=== PATIENT | male | born 1975 ===

== ENCOUNTER 2020-08-20 09:30 | Outpatient (RCR) | payer OTHER, SELFPAY ==
--- NOTE | 2020-08-04 09:29 | PC.NURSE ---
Pt did not attend the community meeting. Called pt who reported he did not have any internet. Confirmed he would start PHP tomorrow.
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
[2020-08-06 08:22] VITALS: BMI 26.6
--- NOTE | 2020-08-06 09:01 | PC.ADMIT ---
Patient is a 44 year old male who started the PHP program on the advise of his therapist d/t increased depression with passive SI in addition to increased anxiety and anger. Patient presents with depressed anxious mood. Somewhat of an irritable edge at times. Denied SI . Patient wants to work on coping skills and is here for, another boost . I'm finally getting to do some of the work I should have done emotionally in my life . Patient stated he has started his path to sobriety from ETOH 2 years ago with relapses in between, last relapsed for 2 months during the summer last use in April. Pt continues to smoke marijuana daily all day. Looking at the impact it is having on his mental and physical health. Patient starting to question his use and how this is hurting him not helping him move forward. Encouraged patient to talk about his struggles in group and look at how he could do things differently this time. Pt strongly encouraged to attend online substance use groups in addition to attending [facility] for more support.
--- NOTE | 2020-08-09 14:12 | P.PNPSP_ITS ---
Subjective Subjective Date of Service: 08/09/20 Reason For Visit: depression Interim History: Rao reports a difficult weekend. He drank on 08/07-was frustrated with some situational issues which prompted the drinking. Today, I am trying to take care . I am done with this. Reports he disposed of everything. Before I add any medication, I need this to be out of my system. I expect to be angry this week, have insomnia, turmoil. Described self- loathing, shame, feeling because he had privilege in upbringing he should not be in this circumstance. Discussed allowing [id number]. Medication Compliance: No (NA) Side effects from medications: No (NA) Attending Groups: Yes Review of Systems Constitutional: Reports fatigue, Reports lethargy and Reports malaise Reports behavioral changes Psychiatric: Reports abnormal sleep pattern (experienced a drunken sleep and a marijuana sleep ), Reports behavioral changes, Reports depression, Reports hopelessness, Reports irritability and Reports mood swings Endocrine: Reports fatigue Mental Status Exam Mental Status Exam Patient Orientation: Person, Place, Time and Situation Level of Consciousness: Awake, Appropriate and Alert Patient Behavior: Talkative, Cooperative and Fatigued Mood Description: Angry (with himself) and Flat Affect Description: Flat Patient Cognition Impaired: No Ability to Follow Directions: Excellent Speech Pattern: Clear, Appropriate and Spontaneous Speech Memory Description: Intact Hallucinations: None Delusions: Not Present Thought Process: Intact and Goal Oriented Thought Content: positive for Intact Depressive Symptoms: Insomnia, Increased Irritability, Difficulty Sleeping, Feelings of Worthlessness, Hopelessness, Feelings of Guilt, Unhappiness, Low Self Esteem and Loss of Energy Judgement: Good Diagnostics Vital Signs (24Hr): Body Mass Index 26.6 Assessment & Plan Patient educated on: substance abuse and therapeutic strategies Informed Consent: understands and further education needed Reason for contiued partial hosp. stay Substantial Risk for: harm to self, inability to function and rapid decompensation Certification I certify that partial hospital treatment is medically necessary due to the symptoms and problems resulting from the patient's mental illness and the failure to treat the patient at the partial hospital level of care would likely result in the patient requiring inpatient psychiatric care which could not be prevented at a less intensive level of care. Greater than 50% of the session was spent on counseling and/or coordination of care Discharge Plan Discharge Attending provider: Saurabh Velez Medications: No Action No Known Home Meds RF: 0
--- NOTE | 2020-08-16 15:09 | PC.NURSE ---
JUSTA for pt's therapist, JEWEL FarrSW
--- NOTE | 2020-08-16 15:09 | PC.NURSE ---
Pt emailed about his schedule. He cancelled PHP today because he had to do Jury Duty (which had been cancelled and then rescheduled somehow to his surprise). He plans to attend tomorrow, (08/17/2020), and Sunday and Sunday, with Sunday (08/20/2020) being his last day. I emailed him back to confirm this.
--- NOTE | 2020-08-20 15:01 | PC.NURSE ---
JUSTA for pt's therapist, YOLANDA Garcia.
--- NOTE | 2020-08-20 15:15 | HO.PHPPROGNO ---
Subjective Subjective Date of Service: 08/20/20 Reason For Visit: depression Interim History: Rao plans discharge today. No medication used while in program-wanting to approach symptoms without psychopharmacology Medication Compliance: No (NA) Side effects from medications: No (NA) Attending Groups: Yes Review of Systems Reports behavioral changes Psychiatric: Reports anxiety, Reports behavioral changes, Reports irritability and Reports mood swings Mental Status Exam Mental Status Exam Patient Orientation: Person, Place, Time and Situation Level of Consciousness: Awake, Appropriate and Alert Patient Behavior: Appropriate Mood Description: Appropriate and Constricted Affect Description: Constricted Patient Cognition Impaired: No Ability to Follow Directions: Excellent Speech Pattern: Clear, Appropriate and Spontaneous Speech Memory Description: Intact Hallucinations: None Delusions: Not Present Thought Process: Intact Thought Content: positive for Intact Depressive Symptoms: Increased Irritability and Isolating-Friends/Family Judgement: Fair Diagnostics Vital Signs (24Hr): Body Mass Index 26.6 Assessment & Plan Patient educated on: medication risk/benefits and therapeutic strategies Informed Consent: understands Reason for contiued partial hosp. stay Substantial Risk for: rapid decompensation Certification I certify that partial hospital treatment is medically necessary due to the symptoms and problems resulting from the patient's mental illness and the failure to treat the patient at the partial hospital level of care would likely result in the patient requiring inpatient psychiatric care which could not be prevented at a less intensive level of care. Greater than 50% of the session was spent on counseling and/or coordination of care Discharge Plan Discharge Attending provider: Saurabh Velez Medications: No Action No Known Home Meds RF: 0
== END 2020-08-20 23:55 | disposition home or self-care (01) ==
LOC: HO.PHPA 09:30
PROVIDERS: Visit Provider Psychiatry & Neurology Psychiatry
DX: F33.2 Major depressive disorder, recurrent severe without psychotic features (principal); F10.20 Alcohol dependence, uncomplicated; F12.20 Cannabis dependence, uncomplicated
CPT/HCPCS: 90792; 90853; 99213

== ENCOUNTER 2023-07-06 13:24 | Emergency (ER) | payer OTHER, SELFPAY ==
--- NOTE | ~2023-07-06 | CT_ITS ---
EXAMINATION: CT HEAD WITHOUT CONTRAST CLINICAL INFORMATION: Trauma. Pain. COMPARISON: None available. TECHNIQUE: Contiguous axial imaging was performed from the skull base to vertex without intravenous administration of contrast. This CT examination was performed using dose optimization techniques as appropriate, variously including the following: *Automated exposure control *Adjustment of mA and/or kV according to patient size (this includes techniques or standardized protocols for targeted exams where dose is matched to indication/reason for exam; i.e. extremities or head) *Use of iterative reconstruction technique DLP: 1025 mGy-cm FINDINGS: The lateral, third and fourth ventricles are normally outlined. The cortical sulci and basal cisterns are normally as well. There is no acute territorial defect, hemorrhage or midline shift. The extra-axial spaces are unremarkable. Calvarium: Intact. Maxillofacial sinuses and mastoids clear as visualized. Cervical spine: There is mild reversal of the expected cervical spine curvature. There is mild C4-C5, C5-C6 and C6-C7 disc degenerative change with loss of disc space, endplate change and posterior osteophytes with resultant minimal mild spinal canal and neuroforaminal narrowing. There is no fracture. The soft tissues are unremarkable. The visualized upper lung shannon are clear. CT/CT cervical spine wo IV con IMPRESSION: No acute intracranial abnormality. [id number] C4-C5 to C6-C7 disc degenerative change with mild reversal of the expected cervical spine curvature. No fracture seen.
--- NOTE | ~2023-07-06 | CT_ITS ---
EXAMINATION: CT HEAD WITHOUT CONTRAST CLINICAL INFORMATION: Trauma. Pain. COMPARISON: None available. TECHNIQUE: Contiguous axial imaging was performed from the skull base to vertex without intravenous administration of contrast. This CT examination was performed using dose optimization techniques as appropriate, variously including the following: *Automated exposure control *Adjustment of mA and/or kV according to patient size (this includes techniques or standardized protocols for targeted exams where dose is matched to indication/reason for exam; i.e. extremities or head) *Use of iterative reconstruction technique DLP: 1025 mGy-cm FINDINGS: The lateral, third and fourth ventricles are normally outlined. The cortical sulci and basal cisterns are normally as well. There is no acute territorial defect, hemorrhage or midline shift. The extra-axial spaces are unremarkable. Calvarium: Intact. Maxillofacial sinuses and mastoids clear as visualized. Cervical spine: There is mild reversal of the expected cervical spine curvature. There is mild C4-C5, C5-C6 and C6-C7 disc degenerative change with loss of disc space, endplate change and posterior osteophytes with resultant minimal mild spinal canal and neuroforaminal narrowing. There is no fracture. The soft tissues are unremarkable. The visualized upper lung shannon are clear. CT/CT head/brain wo IV con IMPRESSION: No acute intracranial abnormality. [id number] C4-C5 to C6-C7 disc degenerative change with mild reversal of the expected cervical spine curvature. No fracture seen.
--- NOTE | 2023-07-06 13:32 | ED_ITS ---
HPI - Head Injury General Chief complaint: Head Injury Stated complaint: head injury Time Seen by Provider: 07/06/23 14:02 Source: patient Mode of arrival: ambulatory Limitations: no limitations History of Present Illness HPI Narrative: This is a 47-year-old male presenting to the emergency department for evaluation of fall status post using a jackhammer, he fell back, into a window well approximately 3 ft, hit his head on the window well ( small laceration to head he states), no loss of consciousness. Reports he being to his right elbow against something. Denies headache, vision changes, dizziness, weakness, nausea, vomiting, chest pain, shortness of breath. Numbness, tingling. GCS 15 NIH stroke scale 0 Related Data Previous Rx's Medication Instructions Recorded ketorolac 10 mg tablet 10 mg PO TID PRN pain 5 days #15 07/06/23 tabs Allergies Allergy/AdvReac Type Severity Reaction Status Date / Time amoxicillin [AMOXICILLIN] Allergy Unknown HIVES Verified 07/06/23 13:33 penicillin V Allergy Unknown hives Verified 07/06/23 13:33 Penicillins [PENICILLINS] Allergy Unknown HIVES Verified 07/06/23 13:33 naltrexone Allergy Nausea and Verified 07/06/23 13:34 Vomiting Review of Systems Review of Systems: Constitutional : No Weight loss, No Fever, No Chills, No Fatigue, No Malaise ENT/Mouth : No sore throat, No Rhinorrhea Eyes: No Eye Pain, No Swelling, No Redness Cardiovascular : No Chest Pain, No SOB, No Dyspnea on Exertion, No Orthopnea, No Edema, No Palpitations Respiratory : No Cough, No Sputum, No Wheezing Gastrointestinal : No Nausea, No Vomiting, No Diarrhea, No Constipation, No abd ominal Pain, No Hematochezia, No Melena Genitourinary : No Dysuria, No Urinary Frequency, No Hematuria, Musculoskeletal : No joint pain, No Myalgias, No Joint Swelling Skin : No Skin Lesions, No rash, + laceration Neuro : No Weakness, No Numbness, No Dizziness, No Headache Psych : No Anxiety/Panic, No Depression All other systems reviewed and are negative Yes all other systems are reviewed and are negative PMFSH Past Medical History Attestation statement: The following information was validated with the patient. Source: old records reviewed and nursing notes reviewed Medical History (Updated 07/06/23 @ 15:45 by CHANTE Segura) Inguinal hernia Arthritis of back RLS (restless legs syndrome) Surgical History (Updated 12/06/20 @ 08:06 by SHADIA Giles) History of hernia repair Family History Family History (Updated 12/06/20 @ 08:08 by SHADIA Giles) Father Hypertension Mother Fibromyalgia Sister In good health Sister In good health Maternal Grandfather Asbestosis Maternal Grandmother Stroke Social History Social History Household Members: Spouse Advance Directives: No Advance Directives Information Provided: Yes Physical Exam Vital Signs: Vital Signs: Last Vital Signs Temp 98 F 07/06/23 13:34 Pulse 100 07/06/23 13:34 Resp 19 07/06/23 13:34 BP 148/93 H 07/06/23 13:34 Pulse Ox 99 07/06/23 13:34 O2 Del Method Room Air 07/06/23 13:34 BMI result Body Mass Index 25.5 Vital signs stable Appearance: Alert.? Oriented X3.? No acute distress.? Head: Normocephalic, atraumatic, no step-offs or deformities Eyes: Pupils equal, round and reactive to light.? Neck: Normal inspection.? Neck supple.? CVS: Normal heart rate and rhythm.? Pulses normal.? Respiratory: No respiratory distress.? Breath sounds normal.? Abdomen: Soft and nontender.? Skin: Skin warm and dry.? Normal skin color.? Normal skin turgor.? + 1 cm laceration to left occipital aspect of head. Extremities: No lower extremity edema.? No calf ttp. 5/5 strength to bilateral upper and lower extremities Back: No midline tenderness, no C-spine tenderness, full range of motion, no CVA tenderness bilaterally Neuro: Oriented X 3.? No motor deficit.? No sensory deficit. CN 2-12 intact Course Course Course Narrative: This is an RME: Additional HPI, ROS, PE not included below will be deferred to primary provider. Patient is a 47-year-old male who presents emergency department for evaluation of head injury after a fall. States he was working outside using a jackhammer when pain fell backwards into a pit approx. 4 ft deep striking the back of his head against concrete and bricks. Denies LOC, or anticoagulation. He endorses a headache, denies dizziness, lightheadedness, neck pain, vision changes. Lac to left occiput, bleeding controlled. Plan: CT head/ c-spine given mechanism of injury Reevaluation(s) Reevaluation #1: CT head and cervical spine with no acute intracranial abnormalities, mild to moderate C4 through C7 disc degenerative changes. Educated patient on diagnosis and treatment plan, answered all question, patient verbalizes understanding. At this time patient will be discharged home, advised to return with new or worsening symptoms. Educated on worrisome signs and symptoms and when to return. At this time I feel comfortable discharge home. Time: 15:51 Medical Decision Making Medical Decision Making [facility] Narrative: 1549 47-year-old male presents status post fall while using jackhammer, no LOC. Not on blood thinners. Physical exam with a 1 cm laceration to the left occipital region of head. Concerns for concussion without loss of consciousness. No signs of skull fracture, or facial fractures. No signs of intracranial hemorrhage, stroke, posterior stroke. Unlikely traumatic injury to neck, chest, abdomen or pelvis. Plan at this time will place 1 staple to patient's head to close laceration. CT head and neck. Differential Diagnosis Differential Diagnoses: The differential diagnosis associated with the p resentation includes Concerns for concussion without loss of consciousness. No signs of skull fracture, or facial fractures. No signs of intracranial hemorrhage, stroke, posterior stroke. Unlikely traumatic injury to neck, chest, abdomen or pelvis. Admission/Observation Consideration of admission/observation: Escalation of care including admission/observation considered unlikely Independent Interpretation I performed an independent interpretation of an: CT Scan Radiology Impression Discussion of test interpretation with radiology: I have reviewed the radiologist's reading. Chronic Conditions Patient?s care impacted by: Other (Restless leg syndrome) Discharge Plan Discharge Clinical Impression: Concussion without loss of consciousness, Laceration of head Patient Disposition: Home, Self-Care Instructions: Concussion (ED), Post Concussion Syndrome (ED) Additional Instructions: Take your medications as prescribed. If you were prescribed antibiotics today, it is important that you take your medication to their entirety, do not skip any doses, do not finish them early. Follow-up with your primary care provider this week. Return to the emergency department with new or worsening symptoms. Such as fevers, chills, chest pain, shortness of breath, nausea, vomiting, dizziness, headache, vision changes, lethargy In case of emergency call 911 return in 5- 7 days for staple removal Toradol has been sent to your pharmacy, you tolerated this well in the department. Please take this as prescribed do not take this with ibuprofen, or other NSAIDs, do not mix this with alcohol. Side effects of this medication including increased risk for bleeding and possible kidney injury. CT/CT head/brain wo IV con IMPRESSION: No acute intracranial abnormality. [id number] C4-C5 to C6-C7 disc degenerative change with mild reversal of the expected cervical spine curvature. No fracture seen. Prescriptions: New ketorolac 10 mg tablet 10 mg PO TID PRN (Reason: pain) 5 Days Qty: 15 0RF Referrals: Nahun Carlson MD [Primary Care Provider] - 2 days Stand Alone Forms: Work/School Release
[2023-07-06 13:34] VITALS: BP 148/93; PULSE 100; RESP 19; TEMP 36.6; O2SAT 99; BMI 25.5
== END 2023-07-06 16:28 | disposition home or self-care (01) ==
PROVIDERS: Emergency Provider Emergency Medicine Emergency Medical Services; PCP Family Medicine
DX: S06.0X0A Concussion without loss of consciousness, initial encounter (principal); S01.01XA Laceration without foreign body of scalp, initial encounter; W17.2XXA Fall into hole, initial encounter; Y93.9 Activity, unspecified; Y92.9 Unspecified place or not applicable; Y99.9 Unspecified external cause status
CPT/HCPCS: 12001; 70450; 72125; 96372; 99283; 99284